=== PATIENT | female | born 1985 | race Caucasian/White ===

== ENCOUNTER 2019-07-11 19:41 | Emergency (ER) | payer OTHER ==
[2019-07-11] MEDS: IPRATROPIUM/ALBUTEROL 3 ML VIAL NEB ONE (20:11)
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
[2019-07-11] MEDS: AMOXICILLIN & POT CLAVULANATE 875 MG TAB PO ONE (21:58)
[2019-07-11 22:04] VITALS: BP 134/73; TEMP 98; O2SAT 99
== END 2019-07-11 22:05 ==
LOC: ER 19:41
DX: J18.9 Pneumonia, unspecified organism (principal); F11.10 Opioid abuse, uncomplicated; F13.10 Sedative, hypnotic or anxiolytic abuse, uncomplicated; F15.10 Other stimulant abuse, uncomplicated; Z87.891 Personal history of nicotine dependence; V47.5XXA Car driver injured in collision with fixed or stationary object in traffic accident, initial encounter; Y92.410 Unspecified street and highway as the place of occurrence of the external cause
CPT/HCPCS: 71046; 72040; 72170; 80053; 80307; 81001; 81025; 83735; 85025; 87502; 93005; 94640; J7620